=== PATIENT | female | born 1990 | race Caucasian/White ===

== ENCOUNTER 2017-10-29 00:08 | Emergency (ER) | payer OTHER ==
[~2017-10-29] VITALS: Ht 167.6 cm; Wt 101.6 kg
[2017-10-29 01:30] VITALS: BP 122/79
== END 2017-10-29 01:30 | disposition home or self-care (01) ==
LOC: ED 00:08
DX: Z48.01 Encounter for change or removal of surgical wound dressing (principal); Z90.49 Acquired absence of other specified parts of digestive tract